=== PATIENT | male | born 1985 | race Caucasian/White ===

== ENCOUNTER 2020-09-04 19:56 | Emergency (ER) | payer OTHER ==
[~2020-09-04] VITALS: Ht 195.5 cm; Wt 153.0 kg
[2020-09-04 20:23] VITALS: BP 161/105
--- NOTE | 2020-09-04 20:36 | ED EENT ---
History of Present Illness General Chief Complaint: Facial Problems Stated Complaint: R SIDE FACE SWOLLEN Source: patient Exam Limitations: no limitations History of Present Illness Date Seen by Provider: Sep 04, 2020 Time Seen by Provider: 20:33 Initial Comments Right mandible swelling and pain for 3 days Timing/Duration: abrupt Severity: moderate Location: dental Prearrival Treatment: no prearrival treatment Associated Symptoms: denies symptoms Allergies and Home Medications Allergies Coded Allergies: No Known Drug Allergies (Unverified , 09/04/20) Patient Home Medication List Home Medication List Reviewed: Yes Review of Systems Review of Systems Constitutional: see HPI Eyes: No Symptoms Reported Ears: No Symptoms Reported Nose: no symptoms reported Mouth: see HPI Throat: no symptoms reported Respiratory: no symptoms reported Cardiovascular: no symptoms reported Musculoskeletal: no symptoms reported Skin: no symptoms reported Physical Exam Height, Weight, BMI Height: '" Weight: lbs. oz. kg; BMI Method: General Appearance: WD/WN, no apparent distress Eyes: bilateral eye normal inspection, bilateral eye PERRL, bilateral eye EOMI Ears: bilateral ear auricle normal, bilateral ear canal normal, bilateral ear TM normal Mouth/Throat: mandibular swelling, other (Adjacent to tooth #28 is large area of fluctuance and swelling. I will do an inferior alveolar nerve block using 2 mL of 1% lidocaine with epinephrine. Then some local anesthesia as well. Incised this with an 11 blade scalpel. Moderate amount of purulent material expressed. Culture collected and sent to lab. Packed with gauze.) Neck: non-tender, full range of motion Cardiovascular: regular rate, rhythm, no murmur Respiratory: no respiratory distress, no accessory muscle use Gastrointestinal: normal bowel sounds, non tender Neurologic/Psychiatric: alert, normal mood/affect, oriented x 3 Skin: normal color, warm/dry Progress/Results/Core Measures Results/Orders My Orders Orders - DONNY MAIN APRN Ceftriaxone (Rocephin) (09/04/20 20:45) Lidocaine/Epi 2% 1:100,000 (Xylocaine/Ep (09/04/20 20:45) Rx-Hydrocodone/Apap 5-325 Mg (Rx-Vicodin (09/04/20 20:45) Lidocaine 1% Inj 20 Ml (Xylocaine 1% Inj (09/04/20 20:45) Wound Culture (09/04/20 20:32) Departure Impression Primary Impression: Dental abscess Disposition: HOME, SELF-CARE Condition: Stable Departure-Patient Inst. Decision time for Depature: 20:35 Patient Instructions: Tooth Abscess ED Add. Discharge Instructions: 1. Return to ER for any concerns 2. Antibiotics and pain medication as directed. All discharge instructions reviewed with patient and/or family. Voiced understanding. Scripts Hydrocodone/Acetaminophen (Hydrocodone-Acetamin 5-325 mg) 1 Each Tablet 1 TAB PO Q4H PRN for PAIN-MODERATE (5-7), #14 TAB Prov: DONNY MAIN APRN 09/04/20 Penicillin V Potassium (Penicillin V Potassium) 500 Mg Tablet 500 MG PO Q6H, #28 TAB Prov: DONNY MAIN APRN 09/04/20 Images Mouth/Nose 1 - Swelling DONNY MAIN APRN Sep 04, 2020 20:36
[2020-09-04] MEDS ORDERED: cefTRIAXone 1,000 MG VIAL IM ONE (20:45)
[2020-09-04] MEDS ORDERED: LIDOCAINE 1% INJ 20 ML 20 ML VIAL INJ ONE (20:45)
[2020-09-04] MEDS ORDERED: LIDOCAINE/EPI 2% 1:100,00 (XYLOCAINE) 20 ML VIAL INJ ONE (20:45)
[2020-09-04] MEDS ORDERED: PENI500T PO (21:00)
[2020-09-04] MEDS ORDERED: ACHD5005 PO (21:00)
== END 2020-09-04 21:05 | disposition home or self-care (01) ==
LOC: ER 20:01
DX: K04.7 Periapical abscess without sinus (principal)
CPT/HCPCS: 87070; 87077; 87205; 96372; 99284